=== PATIENT | female | born 1985 | race Caucasian/White ===

== ENCOUNTER 2022-08-11 13:12 | Emergency (ER) | payer SELFPAY | END 2022-08-11 13:23 | disposition left against medical advice (07) | LOC: MW.ED 13:12 | DX: Z53.21 Procedure and treatment not carried out due to patient leaving prior to being seen by health care provider (principal) ==

== ENCOUNTER 2022-11-19 09:43 | Emergency (ER) | payer MEDICAID ==
[2022-11-19 10:37] LABS: APPEARANCE,URINE CLEAR; BILIRUBIN,URINE NEGATIVE (NEGATIVE); COLOR,URINE YELLOW; GLUCOSE,URINE NEGATIVE (NEGATIVE); KETONES,URINE NEGATIVE (NEGATIVE); LEUKOCYTE ESTERASE,URINE NEGATIVE (NEGATIVE); NITRITE,URINE NEGATIVE (NEGATIVE); OCCULT BLOOD,URINE NEGATIVE (NEGATIVE); PROTEIN,URINE NEGATIVE (NEGATIVE); UROBILINOGEN,URINE 0.2 EU/dL (<2.0)
== END 2022-11-19 10:54 | disposition home or self-care (01) ==
LOC: MW.ED 09:43
DX: R39.15 Urgency of urination (principal)
CPT/HCPCS: 81003; 81025; 99283; 99284